=== PATIENT | female | born 1975 | race Caucasian/White ===

== ENCOUNTER 2016-09-11 19:18 | Emergency (ER) | payer OTHER ==
[~2016-09-11] VITALS: Ht 170.2 cm; Wt 53.6 kg
[~2016-09-11 19:18] MED LIST: LEVO150T5 PO
[2016-09-11 19:20] VITALS: BP 151/101; PULSE 87; RESP 16; O2SAT 99
--- NOTE | 2016-09-11 19:36 | ED.REPORT ---
HPI-Headache Date of Service Sep 11, 2016 ED Provider: Rajeev Crump DO Pt is a 41 year old female with a history of hyperthyroidism who presents to the ED complaining of a headache onset yesterday after a lumbar puncture. The pt reports that she was being tested for MS at [facility] due to weakness in her arms and hands, and she developed a headache 45 minutes following the lumbar puncture. She c/o associated pain in her arm, back, and legs. The pt reports that when she felt the pain, she went to the ER at [facility] and felt relief with medication. However, per pt the pain has gradually worsened and it is exacerbated with standing. Nursing Notes Stated Complaint: HEADACHE, NECK AND BACK PAIN AFTER LUMBAR PUNCTURE Chief Complaint: Headache Nursing Notes Reviewed: Yes Allergies: Coded Allergies: No Known Allergies (Verified , 09/11/16) Scheduled Levothyroxine (Levothyroxine) 150 Mcg Tablet 150 MCG PO DAILY General Time Seen by MD: 19:36 Chief Complaint Headache Hx Obtained From: Patient Arrived By: Walk-in Sudden in Onset?: No Onset Occurred: Yesterday Symptom Duration: Since onset Quality: Painful Severity: Current: Moderate Severity: Maximum: Moderate Recent Healthcare: Recent doctor visit Similar Sx Previous: No Past Medical History Past Medical History Notes: Last Admit for Baclofen OD requiring intubation 10/2015 Last ED visit 02/24/2016 acute situational disturbance and EtOH 0.410 Past Medical History Hx of Alcohol abuse Hypothyroidism Pulmonic stenosis- heart murmur Anxiety Syncopal episodes ho QTc prolongation, presumably from hypomagnesemia - 09/30/15 Pneumonia Left subclavian stenosis Hyperthyroidism Back injury Depression Past Surgical History Cardiac surgery at 13 years old for removal of a vascular ring Cervical procedure: right ovarian cystectomy Family History noncontributory Smoking History Never Smoker Social History Alcohol Use: In recovery Drug Use: Denies drug use Other Social History: , From out of town Occupation Ambulatory Status Independent Review of Systems Musculoskeletal: Reports: Back pain, Extremity pain Neurologic: Reports: Headache, Weakness Complete sys rev & neg: except as marked. Physical Exam Initial Vital Signs Vital Signs (First) Date Time Temp Pulse Resp B/P Pulse Ox O2 Delivery O2 Flow Rate FiO2 09/11/16 19:20 36 87 16 151/101 99 Room Air Initial VS: Reviewed ENT: Mucous membranes moist, Conjunctiva normal, No scleral icterus Respiratory: Breath sounds normal, Clear to auscultation, No respiratory distress Cardiovascular: Regular rate & rhythm, Heart sounds normal, Intact distal pulses Abdomen / GI: Soft, Non-tender Extremities: Vascular intact, Neuro intact Skin: Warm, Dry, No cyanosis Psychiatric: Mood/affect normal, Behavior normal, Normal thought content General/Constitutional: Awake, Alert, Cooperative, Not toxic appearing Head / Eyes: Atraumatic, Normocephalic, PERRL, EOMI Neck: Atraumatic, Full range of motion Neurologic: Oriented X3, Speech NL Back: Atraumatic, Full range of motion Lumbar puncture site in mid-lumbar site looks normal. Interpretation & Diagnostics Lab Results Interpretation Result Diagram: 09/11/16203909/11/162039 Test 09/11/16 20:40 White Blood Count 4.8th/mm3 (3.8-10.1) Red Blood Count 3.94mil/mm3 (3.90-5.20) Hemoglobin 12.4g/dL (12.0-15.6) Hematocrit 36.6% (35.0-46.0) Mean Corpuscular Volume 92.9fL (81-100) Mean Corpuscular Hemoglobin 31.5pg (27.0-35.0) Mean Corpuscular Hemoglobin Concent 33.9% (32.0-37.0) Red Cell Distribution Width 14.8% (12.3-15.4) Platelet Count 133bil/L (150-400) Neutrophils (%) (Auto) 67.5% (40-74) Lymphocytes (%) (Auto) 20.3% (14-46) Monocytes (%) (Auto) 10.3% (4-12) Eosinophils (%) (Auto) 1.5% (0-5) Basophils (%) (Auto) 0.2% (0-3) Sodium Level 137mEq/L (134-144) Potassium Level 3.4mEq/L (3.5-5.2) Chloride Level 97mEq/L (97-108) Carbon Dioxide Level 24mmol/L (18-29) Blood Urea Nitrogen 7mg/dL (6-20) Creatinine 0.40mg/dL (0.57-1.00) Estimat Glomerular Filtration Rate 255mL/min (>59) Glucose Level 125mg/dL (60-99) Calcium Level 10.1mg/dL (8.5-10.1) Total Bilirubin 0.5mg/dL (0.0-1.2) Aspartate Amino Transf (AST/SGOT) 99U/L (0-50) Alanine Aminotransferase (ALT/SGPT) 101U/L (0-32) Alkaline Phosphatase 59U/L (25-150) Total Protein 7.9g/dL (6.4-8.4) Albumin 4.5g/dL (3.4-5.0) Re-Eval/Medical Decision Med Decision/Clinical Course This sounds like a classic spinal headache. What is interesting is she just had the lumbar puncture yesterday. She is medicated with complete resolution of symptoms. I consulted with our anesthesiologist. He recommends against blood patching. He recommends symptomatic treatment and if not better in 48 hours and return for blood patching in the morning. Otherwise medicated she did great. She is very comfortable this. At discharge she is able get up and walk. No further final headache type symptoms. I will place her on a short course of Percocet fluids and caffeine. Of note she had elevated liver enzymes and I told her to keep the amount of acetaminophen she takes down under 4 g a day. She states she has not overdosed on Tylenol. She has been taking regular amounts. She is not sure why her liver enzymes are elevated but she will have this followed up closely. Source of Hx: Old records Re-Evaluation/Progress : Time of Eval: 20:09 Re-Evaluation/Progress Note: Pt rechecked. Informed pt of plan for discharge. Pt understands and agrees with plan for discharge. F/U instructions and RTER warnings given. All questions addressed. Consultation : Referral / Consult Name: Alvin Arce MD Consulted With: Anesthesia Call Returned at: 20:00 Teachers Assistant: Agrees with eval, Agrees with plan Note: Consult with Dr. Arce. He recommends symptomatic care and following up with [facility]. He recommends not pushing the issue. Counseled Regarding: Diagnosis, Need for follow-up, When/why to return to ED Discharge & Departure Impression: Primary Impression: Spinal headache Disposition: Home Discharge Condition All VS Reviewed: Yes Condition: Stable Patient Instructions: Lumbar Puncture (ED) Additional Instructions: Rest tonight. Do not drive tonight. Stay well hydrated and drink beverages with caffeine. Take 1-2 Percocet every 6 hours as needed. Do not drive or drink alcohol or consume acetaminophen while taking Percocet. If you have pain in the morning come back here or go to [facility] for blood patch. Return to the emergency department for any new or worsening symptoms. Referrals: Ban Bermudez MD (PCP) Scribe Attestation Portions of this note were transcribed by Mary Rosado. I, Dr. Crump personally performed the history, physical exam and medical decision-making; I reviewed and confirmed the accuracy of the information in the transcribed note. Signed by: Tato Galeas, 09/11/16 and 20:30. copies to: Ban Bermudez MD, Todd P DO Sep 11, 2016 19:36 Mary Baires Sep 11, 2016 19:58
[2016-09-11] MEDS ORDERED: Ondansetron 2 mg/mL 2 mL Inj IVPUSH PRN (19:50)
[2016-09-11] MEDS ORDERED: 0.9% Sodium Chloride 1,000 ML IV ONE (19:50)
[2016-09-11] MEDS ORDERED: HYDROmorphone 0.5 mg/0.5 mL iSecure Syringe IVPUSH PRN (19:50)
[2016-09-11 21:05] LABS: BASOPHILS % (AUTO) 0.2 % (0-3); EOSINOPHILS % (AUTO) 1.5 % (0-5); MONOCYTES % (AUTO) 10.3 % (4-12); Mean Corpuscular Hemoglobin 31.5 pg (27.0-35.0); Mean Corpuscular Volume 92.9 fL (81-100); NEUTROPHILS % (AUTO) 67.5 % (40-74); Platelet Count 133 bil/L (150-400)
[2016-09-11] MEDS ORDERED: _oxyCODONE/APAP 5-325 mg Tablet PO PRN (22:00)
[2016-09-11] MEDS ORDERED: oxyCODONE-Acetamin 5-325 mg Tablet PO ONE (22:00)
[2016-09-11 23:47] VITALS: BP 129/78; PULSE 63; RESP 18; O2SAT 99
== END 2016-09-11 23:50 | disposition home or self-care (01) ==
LOC: SED 19:18
DX: G97.1 Other reaction to spinal and lumbar puncture (principal); E05.90 Thyrotoxicosis, unspecified without thyrotoxic crisis or storm; F41.9 Anxiety disorder, unspecified
CPT/HCPCS: 36415; 80053; 85025; 96361; 96374; 96375; 99284; J1170; J2405; J7030

== ENCOUNTER 2016-11-24 16:10 | Emergency (ER) | payer OTHER ==
[~2016-11-24] VITALS: Ht 170.2 cm; Wt 54.5 kg
[2016-11-24 16:19] VITALS: BP 129/95; PULSE 104; RESP 16; O2SAT 98
--- NOTE | 2016-11-24 16:46 | ED.REPORT ---
HPI- Female Date of Service Nov 24, 2016 ED Provider: Doc,Ed MD History of Present Illness: 41-year-old female here with frequency, dysuria, urgency and scant production for 3 days. History of UTIs last was in May. No back pain or fever. Is sexually active for gonorrhea chlamydia and no vaginal discharge. Nursing Notes Stated Complaint: POSS UTI Chief Complaint: Female Abdominal Pain Nursing Notes Reviewed: Yes Allergies: Coded Allergies: No Known Allergies (Verified , 09/11/16) Scheduled Cephalexin (Keflex) 500 Mg Capsule 500 MG PO TID Levothyroxine (Levothyroxine) 150 Mcg Tablet 150 MCG PO DAILY General Time Seen by MD: 16:46 Chief Complaint Dysuria Hx Obtained From: Patient Arrived By: Walk-in Sudden in Onset?: No Onset Occurred: 3 days ago Symptom Duration: Intermittent Severity: Current: No pain currently Severity: Maximum: No pain Recent Healthcare: No recent doctor visit Similar Sx Previous: Yes Past Medical History Past Medical History Notes: Last Admit for Baclofen OD requiring intubation 10/2015 Last ED visit 02/24/2016 acute situational disturbance and EtOH 0.410 multiple sclerosis, UTI Past Medical History Hx of Alcohol abuse Hypothyroidism Pulmonic stenosis- heart murmur Anxiety Syncopal episodes ho QTc prolongation, presumably from hypomagnesemia - 09/30/15 Pneumonia Left subclavian stenosis Hyperthyroidism Back injury Depression Past Surgical History Cardiac surgery at 13 years old for removal of a vascular ring Cervical procedure: right ovarian cystectomy Family History noncontributory Smoking History Never Smoker Social History Alcohol Use: In recovery Drug Use: Denies drug use Other Social History: , From out of town Occupation Ambulatory Status Independent Review of Systems Constitutional: Denies: Chills, Fatigue, Fever GI: Denies: Abdominal pain, Nausea, Vomiting Female: Reports: Dysuria, Urinary frequency, Urinary urgency, Denies: Flank pain, Hematuria, Pelvic pain, Vaginal discharge Complete sys rev & neg: except as marked. Physical Exam Initial Vital Signs Vital Signs (First) Date Time Temp Pulse Resp B/P Pulse Ox O2 Delivery O2 Flow Rate FiO2 11/24/16 16:19 37 104 16 129/95 98 Room Air Initial VS: Reviewed, Vital signs normal General/Constitutional: Well-developed, Well-nourished Head / Eyes: Atraumatic, Normocephalic, PERRL Respiratory: Breath sounds normal, Clear to auscultation, No respiratory distress Cardiovascular: Regular rate & rhythm, Heart sounds normal, Intact distal pulses Abdomen / GI: Soft, Non-tender, No guarding, No rebound, No distention Back: No CVA tenderness Skin: Warm, Dry, No cyanosis Neurologic: Alert, Oriented, Nonfocal Psychiatric: Mood/affect normal, Behavior normal, Normal thought content Interpretation & Diagnostics Lab Results Interpretation Test 11/24/16 17:12 Urine Color Yellow (YELLOW) Urine Appearance Clear (CLEAR,HAZY) Urine pH 5.5 (5.0-8.0) Urine Specific [place] 1.025 (1.003-1.035) Urine Protein Tracemg/dL (NEG,TRACE) Urine Glucose (UA) Negativemg/dL (NEGATIVE) Urine Ketones 15mg/dL (NEGATIVE) Urine Occult Blood Trace (NEGATIVE) Urine Nitrite Negative (NEGATIVE) Urine Bilirubin Negative (NEGATIVE) Urine Urobilinogen Normalmg/dL (NORMAL) Urine Leukocyte Esterase Negative (NEGATIVE) Urine RBC 0-2/hpf (0-2) Urine WBC 0-5/hpf (0-5) Urine Epithelial Cells Few/hpf (NONE-MOD) Urine Crystals None seen (NONE SEEN) Urine Bacteria Few/hpf (NONE-FEW) Urine Hyaline Casts None/lpf (NONE) Urine Granular Casts None seen (NONE SEEN) Urine Waxy Casts None seen (NONE SEEN) Urine Red Blood Cell Casts None seen (NONE SEEN) Urine White Blood Cell Casts None seen (NONE SEEN) Urine Mucus None seen (None Seen) Urine Trichomonas None seen (NONE SEEN) Urine Yeast None (NONE SEEN) Urinalysis Comment None Urine Culture Reflexed Not indicated Re-Eval/Medical Decision Med Decision/Clinical Course UA did not show a UTI. Patient states it feels exactly like her past UTIs. We will treat with Keflex. She will follow up with her PCP for further care especially if her pain does not improve. Denies any vaginal symptoms and states to be highly unlikely for her to have STD. She declines a pelvic exam at this point. Discharge & Departure Shift Change Sign-Out Procedures: Results discussed Response to Therapy: Improved Impression: Primary Impression: Dysuria Disposition: Home Discharge Condition All VS Reviewed: Yes Condition: Stable Patient Instructions: Dysuria (ED) Additional Instructions: Take antibiotics as prescribed. Pyridium available [id number] as needed to take up to 3 days. Drink lots of fluids. Follow up for pelvic exam and further care if symptoms are not improving with antibiotics. Urine was not cultured today. Referrals: [facility] (PCP) EDSupervising Provider for APC: Calvin Perez MD, Linnea K ARNP Nov 24, 2016 16:46
[2016-11-24 17:32] LABS: APPEARANCE,URINE CLEAR (CLEAR,HAZY); COLOR,URINE YELLOW (YELLOW); OCCULT BLOOD,URINE TRACE (NEGATIVE); PH,URINE 5.5 (5.0-8.0); UROBILINOGEN,URINE NORMAL (NORMAL)
[2016-11-24] MEDS ORDERED: CEPH-512 PO (17:49)
== END 2016-11-24 17:50 | disposition home or self-care (01) ==
LOC: SED 16:10
DX: R30.0 Dysuria (principal); R35.0 Frequency of micturition; G35 Multiple sclerosis; F10.21 Alcohol dependence, in remission; E03.9 Hypothyroidism, unspecified; Z87.440 Personal history of urinary (tract) infections

== ENCOUNTER 2016-12-16 20:05 | Observation (INO) | payer OTHER ==
[~2016-12-16] VITALS: Ht 170.2 cm; Wt 56.8 kg
[~2016-12-16 20:05] MED LIST changes: +CEPH-512 PO
[2016-12-16 20:34] VITALS: BP 121/79; PULSE 102; RESP 18; O2SAT 95
--- NOTE | 2016-12-16 23:15 | ED.REPORT ---
HPI-General Illness Date of Service Dec 16, 2016 ED Provider: Iker Peterson MD The pt is a 41 year old homeless female with a hx of MS, DM, SI, and syncopal episodes presenting to the ED complaining of her "left foot dropping out" and she cannot walk. She claims that she is not able to take her Glatopa because she is unable to refrigerate it. She claims that she has the pills in her friend 's fridge in [place]. She says that her clinic is [facility], but they will not hold her medications for her. Her provider is in [place]. She is able to walk with a cane. She was last treated with IV steroids in October 2016. Nursing Notes Stated Complaint: BILATERAL LEG WEAKNESS Chief Complaint: Extremity Trauma Nursing Notes Reviewed: Yes Allergies: Coded Allergies: erythromycin base (Verified Allergy, Intermediate, Eye swell shut, 12/17/16 ) Ointment formula Scheduled Amoxicillin/Clav K 500-125 mg (Augmentin 500-125 mg) 1 Each Tablet 1 TABLET PO BID Cephalexin (Keflex) 500 Mg Capsule 500 MG PO TID Levothyroxine (Levothyroxine) 150 Mcg Tablet 150 MCG PO DAILY Miscellaneous Medications Cranberry Conc/Ascorbic Acid (Cranberry 6,000 mg Softgel) 1 Each Capsule 1 EACH PO Magnesium Amino Acid Chelate (Magnesium) 100 Mg Tablet 100 MG PO Melatonin (Melatonin) 1 Mg Tablet 1 MG PO Potassium Gluconate (Potassium) 99 Mg Tablet 99 MG PO Vit W-Ca,Fe,FA(<1 mg) ( Formula) 1 Each Tablet Unknown Dose PO Pyridoxine HCl (Vitamin B6) (B-6) 200 Mg Tablet.er 200 MG PO General Time Seen by MD: 23:10 Chief Complaint Other (not being able to move her left leg) Hx Obtained From: Patient Arrived By: Walk-in Sudden in Onset?: No Location: : Leg left Recent Healthcare: No recent hospitalization, Recent doctor visit Similar Sx Previous: Yes Past Medical History Past Medical History Notes: Last Admit for Baclofen OD requiring intubation 10/2015 Last ED visit 02/24/2016 acute situational disturbance and EtOH 0.410 multiple sclerosis, UTI Past Medical History DM MS Hx of Alcohol abuse Hypothyroidism Pulmonic stenosis- heart murmur Anxiety Syncopal episodes ho QTc prolongation, presumably from hypomagnesemia - 09/30/15 Pneumonia Left subclavian stenosis Hyperthyroidism Back injury Depression Past Surgical History Cardiac surgery at 13 years old for removal of a vascular ring Cervical procedure: right ovarian cystectomy Family History noncontributory Smoking History Never Smoker Social History Alcohol Use: In recovery Drug Use: Denies drug use Other Social History: , From out of town Occupation Ambulatory Status Independent Review of Systems Full Review of Systems Constitutional: Denies: Chills, Fever Respiratory: Denies: Shortness of breath, Wheezing GI: Denies: Nausea, Vomiting Neurologic: Reports: Weakness (left leg) Complete sys rev & neg: except as marked. Physical Exam Vital Signs Vital Signs Date Time Temp Pulse Resp B/P Pulse Ox O2 Delivery O2 Flow Rate FiO2 12/17/16 00:16 90 14 120/81 98 Room Air 12/16/16 20:34 36.2 102 18 121/79 95 Room Air Initial VS: Reviewed, Vital signs normal General/Constitutional: Well-developed, Well-nourished Head / Eyes: Atraumatic, Normocephalic ENT: Mucous membranes moist, Conjunctiva normal Neck: Supple, Full range of motion Respiratory: Breath sounds normal, Clear to auscultation, No respiratory distress Cardiovascular: Regular rate & rhythm, Heart sounds normal Abdomen / GI: Soft, Non-tender Back: No CVA tenderness Skin: Warm, Dry Neurologic: Alert, Oriented Psychiatric: Mood/affect normal, Behavior normal Lower Extremity / Pelvis / MS: Atraumatic Muscle atrophy 1+ strength Neurologic: Oriented X3, Speech NL Diffuse weakness left lower extremity Interpretation & Diagnostics Lab Results Interpretation Result Diagram: 12/17/16 0000 12/17/16 0000 Test 12/17/16 00:00 White Blood Count 5.8th/mm3 (3.8-10.1) Red Blood Count 3.50mil/mm3 (3.90-5.20) Hemoglobin 11.4g/dL (12.0-15.6) Hematocrit 33.4% (35.0-46.0) Mean Corpuscular Volume 95.4fL (81-100) Mean Corpuscular Hemoglobin 32.6pg (27.0-35.0) Mean Corpuscular Hemoglobin Concent 34.1% (32.0-37.0) Red Cell Distribution Width 15.4% (12.3-15.4) Platelet Count 400bil/L (150-400) Neutrophils (%) (Auto) 30.0% (40-74) Lymphocytes (%) (Auto) 57.6% (14-46) Monocytes (%) (Auto) 10.7% (4-12) Eosinophils (%) (Auto) 0.9% (0-5) Basophils (%) (Auto) 0.5% (0-3) Hold Purple Top Tube Received (Received) Hold Blue Top Tube Received (Received) Sodium Level 143mEq/L (134-144) Potassium Level 4.0mEq/L (3.5-5.2) Chloride Level 103mEq/L (97-108) Carbon Dioxide Level 25mmol/L (18-29) Blood Urea Nitrogen 11mg/dL (6-20) Creatinine 0.44mg/dL (0.57-1.00) Estimat Glomerular Filtration Rate 228mL/min (>59) Glucose Level 96mg/dL (60-99) Calcium Level 9.0mg/dL (8.5-10.1) Magnesium Level 2.3mg/dL (1.6-2.6) Total Bilirubin 0.2mg/dL (0.0-1.2) Aspartate Amino Transf (AST/SGOT) 27U/L (0-50) Alanine Aminotransferase (ALT/SGPT) 15U/L (0-32) Alkaline Phosphatase 43U/L (25-150) Total Protein 7.5g/dL (6.4-8.4) Albumin 4.3g/dL (3.4-5.0) Hold Red Top Tube Received (Received) Hold [place] Top Tube Received (Received) Lab values outside NL range: no clinical significance. Re-Eval/Medical Decision Med Decision/Clinical Course 41-year-old female with a history of MS presents with worsening symptoms in her left lower extremity weakness and inability control the muscles. She has been trouble managing her MS medication because of her homelessness, so she has not been taking it. She received a 3 day IV infusion of Solu-Medrol in early October. Her case was discussed with the on-call neurologist for Dr. Bauer who agreed with the plan to place her on another three-day infusion of Solu-Medrol. She will need to try and optimize some sort of cold storage option for her other medication so that she can take it despite her homelessness. Time of Eval: 03:00 Re-Evaluation/Progress Note: Discussed plan to admit. All questions addressed at this time. Consultation #1: Consulted With: Neurology Call Returned at: 00:18 Rn Birthing: Agrees with eval, Agrees with plan Note: On-call neurologist for Dr. Bauer. Discussed plan for admission. Consultation #2: Referral / Consult Name: GorannikkospencerLaurycourt Calvillo DO Consulted With: Hospitalist Call Returned at: 02:58 Rn Birthing: Will see patient, Agrees with plan, Accepts admit Note: Discussed patient's case. Accepts admit. Counseled Regarding: Diagnosis, Lab results, Need for admission Discharge & Departure Primary Impression: Multiple sclerosis exacerbation Referrals: [facility] (PCP) Tato Attestation Portions of this note were transcribed by Lui Baxter. I, Dr. Peterson personally performed the history, physical exam and medical decision-making; I reviewed and confirmed the accuracy of the information in the transcribed note. Signed by: Tato Elena, 12/16/2016 Iker Peterson MD Dec 16, 2016 23:15 Dec 16, 2016 23:33
[2016-12-16] MEDS ORDERED: Methylpred Sodium Succ Inj 1,000 MG in Dextrose 5% 250 ML IV ONE (23:45)
[2016-12-17 00:16] VITALS: BP 120/81; PULSE 90; RESP 14; O2SAT 98
[2016-12-17 00:57] LABS: BASOPHILS % (AUTO) 0.5 % (0-3); EOSINOPHILS % (AUTO) 0.9 % (0-5); MONOCYTES % (AUTO) 10.7 % (4-12); Mean Corpuscular Hemoglobin 32.6 pg (27.0-35.0); Mean Corpuscular Volume 95.4 fL (81-100); Platelet Count 400 bil/L (150-400)
[2016-12-17 01:12] LABS: Magnesium 2.3 mg/dL (1.6-2.6)
[2016-12-17] MEDS ORDERED: Alum-Mag Hydrox-Simeth 30 mL Suspension PO PRN ×2 (04:25→07:50)
[2016-12-17] MEDS ORDERED: Ondansetron 2 mg/mL 2 mL Inj IVPUSH PRN ×2 (04:25→07:50)
[2016-12-17] MEDS ORDERED: AMOX-363 PO (04:35)
[2016-12-17] MEDS ORDERED: CRAN1CAP2 PO (04:42)
[2016-12-17] MEDS ORDERED: MAGN100T5 PO (04:42)
[2016-12-17] MEDS ORDERED: PREN-12 PO (04:42)
[2016-12-17] MEDS ORDERED: PYRI200T7 PO (04:42)
[2016-12-17] MEDS ORDERED: POTA99TA21 PO (04:42)
[2016-12-17] MEDS ORDERED: MELA1TAB9 PO (04:42)
[2016-12-17 04:44] VITALS: BP 110/75; PULSE 99; RESP 18; O2SAT 94
--- NOTE | 2016-12-17 05:35 | NUR ---
Admit Pt arrived onto unit from ED at approx 0435. Pt oriented to room, call light, bathroom, etc. VSS, received report later by Delmi Gan RN. Pt able to ambulate with steady gait using cane which is her baseline. No pain, SOB, n/v. Awaiting orders from physician. Pt was concerned about her detoxing friend that was waiting in her car in the parking lot. Security escorted him up to her room.
[2016-12-17] MEDS ORDERED: Polyethylene Glycol (PEG) 17 Gm Powder PO PRN (07:50)
[2016-12-17 08:05] VITALS: BP 111/69; PULSE 90; RESP 18; O2SAT 97
[2016-12-17] MEDS ORDERED: MethylprednisoLONE Sodium Succinate 62.5 mg/mL 2 mL Inj IVPUSH SCH (08:30)
[2016-12-17] MEDS: Multivit-Miner-Folic Acid-Iron Tablet PO SCH (08:59)
[2016-12-17] MEDS: Amoxicillin-Clav 500-125 mg Tablet PO SCH ×2 (08:59→19:52)
[2016-12-17] MEDS ORDERED: MELATONIN PO (10:46)
--- NOTE | 2016-12-17 10:56 | NUR ---
Mobility 0800 called to pt room to assist to BR. Pt physically move left leg to edge of bed then was able to stand and amb with cane SBA. 1000 seen getting up out of bed indep to sink to wash face and teeth. was not seen having to physically move left let, got up indep.
--- NOTE | 2016-12-17 11:42 | PCM.HPMED ---
Subjective Date of Service Dec 17, 2016 Primary Provider: Admitting Physician: Laury Solano DO [facility] Attending Physician: Jonas Tolentino MD Chief Complaint: Left lower extremity weakness History of Present Illness: Patient is a 41 year old female with pmh of MS (last flare end of ), frequent UTIs, Hypothyroidism who is getting admitted for the left sided weakness. She was in here with her friend last night in ER as he was supposed to be admitted for detox, he was given meds and was being discharged when she felt loss of motor response in her left foot. She follows Dr. Rajeev Bauer ( neurologist) in [place] for MS. She added that she recently had right parotid infection for which was taking augmentin, and left eye bacterial conjunctivitis, for which she is taking polymyxin B drops. Today morning, she denies any complaints except not being to move her left foot still. She added that she was started on Glatopa by her neurologist about a month ago, however she has only taken 7 days of meds so far. The reason being, the med needs to be refrigerated and she lives in a car, and her medication is sitting in her friend 's fridge. Allergies Coded Allergies: erythromycin base (Verified Allergy, Intermediate, Eye swell shut, 12/17/16 ) Ointment formula PMH DM MS Hx of Alcohol abuse Hypothyroidism Pulmonic stenosis- heart murmur Anxiety Syncopal episodes ho QTc prolongation, presumably from hypomagnesemia - 09/30/15 Pneumonia Left subclavian stenosis Hyperthyroidism Back injury Depression Surgical History Cardiac surgery at 13 years old for removal of a vascular ring Cervical procedure: right ovarian cystectomy Family History Non contributory Social History Hx Alcohol Use: Yes (OCCASIONAL) Hx Substance Use: No Hx Tobacco Use: No Smoking Status: Never Smoker Exam Vital Signs Vital Sign - Last Date Time Temp Pulse Resp B/P Pulse Ox O2 Delivery O2 Flow Rate FiO2 12/17/16 08:05 36.8 90 18 111/69 97 Room Air Exam General/Constitutional: Well-developed, Well-nourished Head / Eyes: Atraumatic, Normocephalic ENT: Mucous membranes moist, Conjunctiva normal Neck: Supple, Full range of motion Respiratory: Breath sounds normal, Clear to auscultation, No respiratory distress Cardiovascular: Regular rate & rhythm, Heart sounds normal Abdomen / GI: Soft, Non-tender Back: No CVA tenderness Skin: Warm, Dry Neurologic: Alert, Oriented Psychiatric: Mood/affect normal, Behavior normal Lower Extremity / Pelvis / MS: Atraumati Muscle atrophy 1+ strength Neurologic: Oriented X3, Speech NL, Babinski negative Diffuse weakness left lower extremity Lab and Diagnostics Result Diagram: 12/17/16 0000 12/17/16 0000 X-Rays, CTs and MRIs MRI IMPRESSION: 1. No acute intracranial hemorrhage or ischemia. 2. No parenchymal mass. 3. Extensive white matter changes within the supratentorial brain has a pattern that is most suggestive of demyelinating process such as multiple sclerosis, particularly given the patient's age. Chronic small vessel ischemic changes are felt to be unlikely given the patient's age. There is questionable involvement of the corpus callosum. No definite abnormal signal is appreciated involving the posterior fossa, brainstem, midbrain. No enhancing lesions. Assessment & Plan Patient is a 41 year old female with pmh of MS (last flare end of ), frequent UTIs, Hypothyroidism who is getting admitted for the left sided weakness. > Left sided weakness - likely 2/2 MS flare - will do high dose steroids 1000mg Qdaily till symptomatic improvement - will repeat MRI to rule out any other acute causes - will start home dose of glatopa once confirmed - Neurology consult, discussed with Dr. Sanchez - case liner/director social to look into options for refrigeration options outpatient > h/o UTIs - urinalysis to rule out the etiology for flare from UTI >recent h/o partoditis - markedly improved, no fever or wbc count observed - finish the course of oral abx >recent h/o Left eye bacterial conjunctivitis - continue polymyxin B to complete the course > Hypothyroidism - continue home levothyroxine > H/o alcohol withdrawals - continue vitamin supplements Dispo: Patient likely to stay > 2 days due to MS flare and its complications. Pain Evaluation: Adequate Pain Control Resuscitation Status: CPR: Attempt Resuscitation Time spent 35 mins Jonas Tolentino MD Dec 17, 2016 11:38
[2016-12-17 12:21] LABS: COLOR,URINE STRAW (YELLOW)
[2016-12-17 12:22] LABS: APPEARANCE,URINE CLEAR (CLEAR,HAZY); OCCULT BLOOD,URINE LARGE (NEGATIVE); PH,URINE 5.5 (5.0-8.0); UROBILINOGEN,URINE NORMAL (NORMAL)
[2016-12-17] MEDS: Polymyxin B-Trimethoprim 10 mL Ophthalmic Solution LEFT_EYE SCH ×4 (13:50→21:24)
[2016-12-17 16:30] VITALS: BP 128/76; PULSE 101; RESP 18; O2SAT 97
[2016-12-17] MEDS ORDERED: Methylpred Sodium Succ Inj 1,000 MG in Dextrose 5% 250 ML IV SCH (17:00)
--- NOTE | 2016-12-17 17:17 | NUR ---
Social Work Note: Initial Assessment Data& Assessment: EMR reviewed. CLAY MILLER met with pt at bedside to discuss discharge planning, CLAY MILLER role explained and discharge planning checklist provided. Sarah Mitchell is a 41 year old female admitted under observation status on 12/17/2016 for acute exacerbation of MS. Pt has [employer] coverage and sees Yoselin Doe with [facility] for primary care. Pt lives in her car with her boyfriend and is independent with all ADL's. Pt ambulates with a cane at baseline. Pt is not a and does not have LTC insurance. CLAY MILLER and pt reflected on the fact that if she ever began to feel unsafe and unable to complete her ADL's due to her MS, she could be evaluated by the [facility] for LTC through [facility]. Pt is familiar with this program. Pt primary concern is her medications for her MS which need to be refrigerated. Pt currently storing them in her friends fridge. CLAY MILLER confirmed with [facility] in [place] that the pt would be able to store her medications in their fridge if she went there for their services and meals. Pt also shared interest in dental care. Pt explained she was traveling to in [place] for Free dental work but transportation to [place] is difficult to her. CLAY MILLER inquired with [facility] dental program who explained that they actually partner with dental program and come to our community on scheduled dates to provide free dental care to community members. However, it is uncertain at this time if the funding will be available for this program this fall, but they hopefully will know more information in a couple of weeks. CLAY MILLER provided pt with their phone number and encouraged her to call in a couple of weeks. Pt denies any other needs at this time. CLAY MILLER provided community resource information. No other MD orders identified at this time. CLAY MILLER to continue to follow if any other pt needs or MD orders arise. Plan: Anticipated discharge back into the community with her significant other via POV when medically ready. Community Resource information provided. CLAY MILLER to continue to follow if any other pt needs or MD orders arise. JEFF Thapa Addendum: 12/17/16 at 1724 by MARC LUCIO Amended: Links added.
[2016-12-17] MEDS: Methylpred Sodium Succ Inj 1,000 MG in Dextrose 5% 250 ML IV SCH (18:27)
--- NOTE | 2016-12-17 18:40 | DRSVH ---
PROCEDURE: MRI MULTIPLE SCLEROSIS BRAIN WITH AND WITHOUT CONTRAST ([id number]) INDICATIONS: MULTIPLE SCLEROSIS TECHNIQUE: Noncontrast sagittal and axial FLAIR, axial and coronal T2 fast spin echo, axial VIBE, axial gradient echo, axial diffusion and ADC through the brain. After the administration of contrast, axial and co ankit VIBE with fat saturation through the brain. COMPARISON: [facility], MR, MR BRAIN W&WO CON, 04/05/2016, 18:54. FINDINGS: Image quality: Excellent. CSF spaces: Ventricles are normal in size and shape. Basal cisterns are patent. No extra-axial flu id collections. Brain: No intracranial bleeds or mass effects. Bernardo-white matter interface appears intact. There mu ltiple bilateral deep and periventricular white matter lesions similar in extent to the comparison MR I dated 04/05/16. No new white matter lesions visualized. No abnormal intracranial enhancement. Diffu waqar weighted images show no acute ischemic insults. Brainstem appears normal. Normal intravascular flow voids are present. Skull and face: Calvarial marrow signal is normal. Orbits appear normal. Sinuses: Sinuses and mastoids are clear. IMPRESSION: 1. Unchanged deep and periventricular white matter lesions likely associated with multiple sclerosis. 2. No acute intracranial findings. 3. No findings to suggest progression of disease when compared with the study dated 04/05/16. 4. No abnormal enhancement to suggest active demyelination. Dictated by: Darby Munoz M.D. on 12/17/2016 at 18:34 Approved by: Darby Munoz M.D. on 12/17/2016 at 18:38
[2016-12-17 19:53] VITALS: BP 144/91; PULSE 93; RESP 18; O2SAT 97
[2016-12-18] MEDS: Polymyxin B-Trimethoprim 10 mL Ophthalmic Solution LEFT_EYE SCH ×9 (00:01→23:36)
[2016-12-18 00:27] VITALS: BP 121/79; PULSE 77; RESP 17; O2SAT 96
[2016-12-18 05:25] VITALS: BP 122/78; PULSE 76; RESP 16
--- NOTE | 2016-12-18 05:34 | NUR ---
pain: Patient c/o muscle cramps in lower left leg, provided warm packs with good comfort, noted fluid intake decreased, encouraged to increase fluids as tolerated. Instructed on benefits of fluid R/T pain and discomfort. Continues on steroids for MS exacerbation and Augmentin for parotid infection. left eye healing well with no observed drainage this shift.
[2016-12-18 07:45] VITALS: BP 116/75; PULSE 67; RESP 16; O2SAT 98
[2016-12-18] MEDS: Multivit-Miner-Folic Acid-Iron Tablet PO SCH (08:44)
[2016-12-18] MEDS: Amoxicillin-Clav 500-125 mg Tablet PO SCH ×2 (08:44→20:28)
--- NOTE | 2016-12-18 10:24 | PCM.PNMED ---
Subjective Date of Service Dec 18, 2016 Subjective c/o muscle cramps in lower left leg Exam Vital Signs Vital Sign - Last Date Time Temp Pulse Resp B/P Pulse Ox O2 Delivery O2 Flow Rate FiO2 12/18/16 07:45 36.8 67 16 116/75 98 Room Air Intake and Output 12/17/16 12/17/16 12/18/16 Cumulative From/Thru 15:00 23:00 07:00 12/16/16 20:34 - 12/18/16 06:31 Intake Total 1020 ml 480 ml 730 ml 2230 ml Output Total 250 ml 150 ml 1650 ml 2050 ml Balance 770 ml 330 ml -920 ml 180 ml Intake Oral 1020 ml 480 ml 720 ml 2220 ml Tube Irrigant 10 ml 10 ml Output Urine Total 250 ml 150 ml 1650 ml 2050 ml # Bowel Movements 0 0 Exam General/Constitutional: Well-developed, Well-nourished Head / Eyes: Atraumatic, Normocephalic L Eye- swollen, no drainage. ENT: Mucous membranes moist, Conjunctiva normal Neck: Supple, Full range of motion Respiratory: Breath sounds normal, Clear to auscultation, No respiratory distress Cardiovascular: Regular rate & rhythm, Heart sounds normal Abdomen / GI: Soft, Non-tender Back: No CVA tenderness Skin: Warm, Dry Neurologic: Alert, Oriented Psychiatric: Mood/affect normal, Behavior normal Lower Extremity / Pelvis / MS: Atraumatic Muscle atrophy 1+ strength Neurologic: Oriented X3, Speech NL, Babinski negative Diffuse weakness left lower extremity IVs and Medications Medications Reviewed: Medications were reviewed in detail Lab and Diagnostics Result Diagram: 12/17/16 0000 12/17/16 0000 X-Rays, CTs and MRIs 12/17/16 MRI MULTIPLE SCLEROSIS BRAIN WITH AND WITHOUT CONTRAST ([id number]) IMPRESSION: 1. There multiple bilateral deep and periventricular white matter lesions similar in extent to the comparison MRI dated 04/05/16. No new white matter lesions visualized 2. No acute intracranial findings. 3. No findings to suggest progression of disease when compared with the study dated 04/05/16. 4. No abnormal enhancement to suggest active demyelination. MRI IMPRESSION: 1. No acute intracranial hemorrhage or ischemia. 2. No parenchymal mass. 3. Extensive white matter changes within the supratentorial brain has a pattern that is most suggestive of demyelinating process such as multiple sclerosis, particularly given the patient's age. Chronic small vessel ischemic changes are felt to be unlikely given the patient's age. There is questionable involvement of the corpus callosum. No definite abnormal signal is appreciated involving the posterior fossa, brainstem, midbrain. No enhancing lesions. Assessment & Plan Patient is a 41 year old female with pmh of MS (last flare end of ), frequent UTIs, Hypothyroidism who is getting admitted for the left sided weakness, on steroids for MS exacerbation and Augmentin for parotid infection > MS Exacerbation with Left sided weakness, poa, active. despite being on glatopa - Started high dose IV steroids 1000mg Qdaily started 12/17. - MRI-multiple bilateral deep and periventricular white matter lesions similar in extent to the comparison MRI dated 04/05/16. No new white matter lesions visualized. . - Neurology consult, discussed with Dr. Sanchez. - Will arrange follow up with outpatient Neurologist, Dr. Rajeev Bauer. Consider different agent as outpatient. tecfidera - PT ordered, pt uses cane now. >recent h/o partoditis - markedly improved, no fever or wbc count observed - finish the course of oral abx Augmentin. > h/o UTIs, stable. - urinalysis ruled out the etiology for flare from UTI >recent h/o Left eye bacterial conjunctivitis - continue polymyxin B to complete the course > Hypothyroidism - continue home levothyroxine > H/o alcohol withdrawals - continue vitamin supplements - Monitor for WD. Dispo: Will attempt to change to inpatient status. Patient likely to stay > 2 days due to MS flare and its complications. Resuscitation Status: CPR: Attempt Resuscitation Joey Severino MD Dec 18, 2016 10:24
[2016-12-18 16:45] VITALS: BP 135/79; PULSE 86; RESP 18; O2SAT 95
[2016-12-18] MEDS: Methylpred Sodium Succ Inj 1,000 MG in Dextrose 5% 250 ML IV SCH (17:07)
--- NOTE | 2016-12-18 19:38 | NUR ---
Flu shot Pt requesting flu shot during this hospitalization. MD stated not while receiving high dose steroids, to follow up with PCP after discharge. Pt notified.
[2016-12-18 20:30] VITALS: BP 127/78; PULSE 88; RESP 16; O2SAT 96
[2016-12-19 01:00] VITALS: BP 132/80; PULSE 75; RESP 16; O2SAT 98
[2016-12-19] MEDS: Polymyxin B-Trimethoprim 10 mL Ophthalmic Solution LEFT_EYE SCH ×8 (02:37→23:34)
--- NOTE | 2016-12-19 05:27 | NUR ---
Unable to scan medications Computer scanners were down so unable to scam patient bracelet and medication barcode used date and name to identify patient. Pt. continues to have weakness but ambulates well to restroom with just standby assist. Pt. is on RA, SL Lt AC flushing well. VSS and she is in good spirits. WCTM
[2016-12-19 05:55] VITALS: BP 132/83; PULSE 79; RESP 16; O2SAT 97
[2016-12-19] MEDS: Amoxicillin-Clav 500-125 mg Tablet PO SCH ×2 (08:32→20:39)
[2016-12-19] MEDS: Multivit-Miner-Folic Acid-Iron Tablet PO SCH (08:32)
[2016-12-19 09:05] VITALS: BP 128/81; PULSE 72; RESP 16; O2SAT 96
--- NOTE | 2016-12-19 11:04 | PCM.PNMED ---
Subjective Date of Service Dec 19, 2016 Subjective No overnight events. Exam Vital Signs Vital Sign - Last Date Time Temp Pulse Resp B/P Pulse Ox O2 Delivery O2 Flow Rate FiO2 12/19/16 09:05 36.7 72 16 128/81 96 Room Air Intake and Output 12/18/16 12/18/16 12/19/16 Cumulative From/Thru 15:00 23:00 07:00 12/16/16 20:34 - 12/18/16 22:38 Intake Total 2316 ml 4546 ml Output Total 475 ml 2525 ml Balance 1841 ml 2021 ml Intake Oral 2050 ml 4270 ml IV Total 266 ml 266 ml Tube Irrigant 10 ml Output Urine Total 475 ml 2525 ml # Voids 4 4 # Bowel Movements 0 0 Exam General/Constitutional: Well-developed, Well-nourished Head / Eyes: Atraumatic, Normocephalic L Eye- swollen, no drainage. ENT: Mucous membranes moist, Conjunctiva normal Neck: Supple, Full range of motion Respiratory: Breath sounds normal, Clear to auscultation, No respiratory distress Cardiovascular: Regular rate & rhythm, Heart sounds normal Abdomen / GI: Soft, Non-tender Back: No CVA tenderness Skin: Warm, Dry Neurologic: Alert, Oriented Psychiatric: Mood/affect normal, Behavior normal Lower Extremity / Pelvis / MS: Atraumatic Muscle atrophy 1+ strength Neurologic: Oriented X3, Speech NL, Babinski negative Diffuse weakness left lower extremity IVs and Medications Medications Reviewed: Medications were reviewed in detail Lab and Diagnostics Result Diagram: 12/17/16 0000 12/17/16 0000 X-Rays, CTs and MRIs 12/17/16 MRI MULTIPLE SCLEROSIS BRAIN WITH AND WITHOUT CONTRAST ([id number]) IMPRESSION: 1. There multiple bilateral deep and periventricular white matter lesions similar in extent to the comparison MRI dated 04/05/16. No new white matter lesions visualized 2. No acute intracranial findings. 3. No findings to suggest progression of disease when compared with the study dated 04/05/16. 4. No abnormal enhancement to suggest active demyelination. MRI IMPRESSION: 1. No acute intracranial hemorrhage or ischemia. 2. No parenchymal mass. 3. Extensive white matter changes within the supratentorial brain has a pattern that is most suggestive of demyelinating process such as multiple sclerosis, particularly given the patient's age. Chronic small vessel ischemic changes are felt to be unlikely given the patient's age. There is questionable involvement of the corpus callosum. No definite abnormal signal is appreciated involving the posterior fossa, brainstem, midbrain. No enhancing lesions. Assessment & Plan Patient is a 41 year old female with pmh of MS (last flare end of ), frequent UTIs, Hypothyroidism who is getting admitted for the left sided weakness, on steroids for MS exacerbation and Augmentin for parotid infection > MS Exacerbation with Left sided weakness, poa, active. despite being on glatopa - Started high dose IV steroids 1000mg Qdaily started 12/17. - MRI-multiple bilateral deep and periventricular white matter lesions similar in extent to the comparison MRI dated 04/05/16. No new white matter lesions visualized. . - Will arrange follow up with outpatient Neurologist next week, Dr. Rajeev Bauer. Consider different agent as outpatient such as tecfidera. Keep follow up appointment December 25, 2pm. Office will call with sooner follow up if available. - Neurology, Dr. Snachez, consulted. Plan discussed as above. >recent h/o partoditis - markedly improved, no fever or wbc count observed - finish the course of oral abx Augmentin for 10 days to finish Dec.22 > h/o UTIs, stable. - urinalysis ruled out the etiology for flare from UTI >recent h/o Left eye bacterial conjunctivitis - continue polymyxin B to complete the course on 12/20. > Hypothyroidism - continue home levothyroxine > H/o alcohol withdrawals - continue vitamin supplements - No evidence Dispo: Patient likely to stay > 2 days due to MS flare and its complications. Resuscitation Status: CPR: Attempt Resuscitation Joey Severino MD Dec 19, 2016 11:04 Joey Severino MD Dec 19, 2016 11:04
[2016-12-19 13:00] VITALS: BP 140/84; PULSE 94; RESP 16; O2SAT 96
[2016-12-19 16:30] VITALS: BP 137/86; PULSE 81; RESP 16; O2SAT 96
--- NOTE | 2016-12-19 17:30 | NUR ---
Shift Note Patient ambulated in room with cane without difficulty today. IV Solumedrol given this afternoon. VSS. Remains observation status, but UR RN aware and this is appropriate at this time. Patient should d/c after MS medications are prescribed and IV Solumedrol course is finished. Of Note: Wireless difficulties in unit and no medication bar code scanned for this patient today.
[2016-12-19] MEDS: Methylpred Sodium Succ Inj 1,000 MG in Dextrose 5% 250 ML IV SCH (17:53)
[2016-12-19 20:30] VITALS: BP 128/80; PULSE 66; RESP 16; O2SAT 97
[2016-12-20 01:00] VITALS: BP 139/79; PULSE 75; RESP 16; O2SAT 96
[2016-12-20] MEDS: Polymyxin B-Trimethoprim 10 mL Ophthalmic Solution LEFT_EYE SCH ×3 (02:30→07:50)
[2016-12-20 05:32] VITALS: BP 139/79; PULSE 71; RESP 16; O2SAT 96
--- NOTE | 2016-12-20 05:45 | NUR ---
Continued Improvement Patient is doing better everyday. Able to ambulate easier and no reports of pain. VSS and she is in good spirits. No adverse reactions to medication treatments during this shift. Eyes are looking better with eye drop treatment. [facility]
[2016-12-20] MEDS: Multivit-Miner-Folic Acid-Iron Tablet PO SCH (07:50)
[2016-12-20 08:44] VITALS: BP 132/82; PULSE 73; RESP 16; O2SAT 97
--- NOTE | 2016-12-20 10:58 | PCM.PNMED ---
Subjective Date of Service Dec 20, 2016 Subjective Pt c/o of cramps both legs overnight. Exam Vital Signs Vital Sign - Last Date Time Temp Pulse Resp B/P Pulse Ox O2 Delivery O2 Flow Rate FiO2 12/20/16 08:44 36.8 73 16 132/82 97 Room Air Intake and Output 12/19/16 12/19/16 12/20/16 Cumulative From/Thru 15:00 23:00 07:00 12/16/16 20:34 - 12/20/16 06:18 Intake Total 1000 ml 950 ml 0 ml 6496 ml Output Total 1150 ml 500 ml 500 ml 4675 ml Balance -150 ml 450 ml -500 ml 1821 ml Intake Oral 1000 ml 700 ml 5970 ml IV Total 250 ml 0 ml 516 ml Tube Irrigant 10 ml Output Urine Total 1150 ml 500 ml 500 ml 4675 ml # Voids 1 5 # Bowel Movements 0 Exam General/Constitutional: Well-developed, Well-nourished Head / Eyes: Atraumatic, Normocephalic L Eye- swollen, no drainage. ENT: Mucous membranes moist, Conjunctiva normal Neck: Supple, Full range of motion Respiratory: Breath sounds normal, Clear to auscultation, No respiratory distress Cardiovascular: Regular rate & rhythm, Heart sounds normal Abdomen / GI: Soft, Non-tender Back: No CVA tenderness Skin: Warm, Dry Neurologic: Alert, Oriented Psychiatric: Mood/affect normal, Behavior normal Lower Extremity / Pelvis / MS: Atraumatic Muscle atrophy 1+ strength Neurologic: Oriented X3, Speech NL, Babinski negative Diffuse weakness left lower extremity IVs and Medications Medications Reviewed: Medications were reviewed in detail Lab and Diagnostics Result Diagram: 12/17/16 0000 12/17/16 0000 X-Rays, CTs and MRIs 12/17/16 MRI MULTIPLE SCLEROSIS BRAIN WITH AND WITHOUT CONTRAST ([id number]) IMPRESSION: 1. There multiple bilateral deep and periventricular white matter lesions similar in extent to the comparison MRI dated 04/05/16. No new white matter lesions visualized 2. No acute intracranial findings. 3. No findings to suggest progression of disease when compared with the study dated 04/05/16. 4. No abnormal enhancement to suggest active demyelination. MRI IMPRESSION: 1. No acute intracranial hemorrhage or ischemia. 2. No parenchymal mass. 3. Extensive white matter changes within the supratentorial brain has a pattern that is most suggestive of demyelinating process such as multiple sclerosis, particularly given the patient's age. Chronic small vessel ischemic changes are felt to be unlikely given the patient's age. There is questionable involvement of the corpus callosum. No definite abnormal signal is appreciated involving the posterior fossa, brainstem, midbrain. No enhancing lesions. Assessment & Plan Patient is a 41 year old female with pmh of MS (last flare end of ), frequent UTIs, Hypothyroidism who is getting admitted for the left sided weakness, on steroids for MS exacerbation and Augmentin for parotid infection > MS Exacerbation with Left sided weakness, poa, active. despite being on glatopa - Started high dose IV steroids 1000mg Qdaily started 12/17. - MRI-multiple bilateral deep and periventricular white matter lesions similar in extent to the comparison MRI dated 04/05/16. No new white matter lesions visualized. . - Will arrange follow up with outpatient Neurologist next week, Dr. Rajeev Bauer. Consider different agent as outpatient such as tecfidera. Keep follow up appointment December 25, 2pm. Office will call with sooner follow up if available. - Neurology, Dr. Sanchez, consulted. Plan discussed as above. LE Cramps- active. likely due to MS. Rule out electrolyte deficiency. May benefit from MM relaxer, Will try Tizanidine. >recent h/o partoditis - markedly improved, no fever or wbc count observed - finish the course of oral abx Augmentin for 10 days to finish Dec.22 > h/o UTIs, stable. - urinalysis ruled out the etiology for flare from UTI >recent h/o Left eye bacterial conjunctivitis - continue polymyxin B to complete the course on 12/20. > Hypothyroidism - continue home levothyroxine > H/o alcohol withdrawals - continue vitamin supplements - No evidence Dispo: Patient likely to stay > 2 days due to MS flare and its complications. Pain Evaluation: Adequate Pain Control VTE Mechanical Devices: Intermittant Pneumatic CD (Pt refuses due to LE muscle cramps) Resuscitation Status: CPR: Attempt Resuscitation Joey Severino MD Dec 20, 2016 10:58
[2016-12-20] MEDS: Amoxicillin-Clav 500-125 mg Tablet PO SCH (12:20)
[2016-12-20 12:26] VITALS: BP 135/81; PULSE 79; RESP 16; O2SAT 97
--- NOTE | 2016-12-20 15:20 | NUR ---
Shift Note: Patient to discharge tomorrow back into the community with follow up care for her MS medications with her outpatient MD. Was complaining of worse leg cramping today. Ibuprofen given, then one dose of Flexeril and subsequent labs drawn to measure electrolytes. Moving well in room with cane. Eye gtts were d/c'd, pt. stating her eye infection feels much improved.
[2016-12-20 15:42] LABS: BASOPHILS % (AUTO) 0.1 % (0-3); EOSINOPHILS % (AUTO) 0 % (0-5); MONOCYTES % (AUTO) 5.2 % (4-12); Mean Corpuscular Hemoglobin 32.6 pg (27.0-35.0); Mean Corpuscular Volume 95.7 fL (81-100); NEUTROPHILS % (AUTO) 84.7 % (40-74); Platelet Count 410 bil/L (150-400)
[2016-12-20 15:57] VITALS: BP 146/86; PULSE 80; RESP 18; O2SAT 97
[2016-12-20 16:33] LABS: Magnesium 1.9 mg/dL (1.6-2.6)
[2016-12-20 22:00] VITALS: BP 125/86; PULSE 89; RESP 16; O2SAT 97
--- NOTE | 2016-12-21 04:44 | NUR ---
Nursing, NOC shift Patient is a/o, voices needs, pleasant and cooperative. SBA mobility, continues w/ LLE weakness; uses cane at baseline. Rx Glatopa injections delivered to floor via pharmacy, wrapped in cool pack. Page to MD to confer; as patient is requesting to take a dose this NOC. Per MD, it will be addressed during the day, as she is currently taking meds (SoluMedrol) that may interact w/ the injection. Three syringes remain wrapped in cool pack, and are in the med room fridge. Pharmacy has the remaining box of medicated syringes downstairs in their department. Patient denies pain/discomfort thru the NOC, appears to be sleeping comfortably. No PRNs requested, VSS. CTM for changes.
[2016-12-21 08:02] VITALS: BP 126/85; PULSE 69; RESP 18; O2SAT 97
[2016-12-21] MEDS ORDERED: Methylpred Sodium Succ Inj 1,000 MG in Dextrose 5% 250 ML IV ONE (08:30)
[2016-12-21] MEDS: Multivit-Miner-Folic Acid-Iron Tablet PO SCH (09:24)
--- NOTE | 2016-12-21 10:28 | PCM.DC.MED ---
Discharge Summary Date of Service Dec 21, 2016 Dates of Hospitalization Date of Hospital Admission Dec 17, 2016 at 03:30 Date of Discharge: Dec 21, 2016 Providers: Admitting Physician: Laury Solano DO Primary Care Physician: Ida JamaRowley,Seamar Attending Physician: Joey Severino MD Procedures XRay, CTs & MRIs 12/17/16 MRI MULTIPLE SCLEROSIS BRAIN WITH AND WITHOUT CONTRAST ([id number]) IMPRESSION: 1. There multiple bilateral deep and periventricular white matter lesions similar in extent to the comparison MRI dated 04/05/16. No new white matter lesions visualized 2. No acute intracranial findings. 3. No findings to suggest progression of disease when compared with the study dated 04/05/16. 4. No abnormal enhancement to suggest active demyelination. MRI IMPRESSION: 1. No acute intracranial hemorrhage or ischemia. 2. No parenchymal mass. 3. Extensive white matter changes within the supratentorial brain has a pattern that is most suggestive of demyelinating process such as multiple sclerosis, particularly given the patient's age. Chronic small vessel ischemic changes are felt to be unlikely given the patient's age. There is questionable involvement of the corpus callosum. No definite abnormal signal is appreciated involving the posterior fossa, brainstem, midbrain. No enhancing lesions. Brief History Patient is a 41 year old female with pmh of MS (last flare end of ), frequent UTIs, Hypothyroidism who is getting admitted for the left sided weakness. She was in here with her friend last night in ER as he was supposed to be admitted for detox, he was given meds and was being discharged when she felt loss of motor response in her left foot. She follows Dr. Rajeev Bauer ( neurologist) in [place] for MS. She added that she recently had right parotid infection for which was taking augmentin, and left eye bacterial conjunctivitis, for which she is taking polymyxin B drops. Today morning, she denies any complaints except not being to move her left foot still. She added that she was started on Glatopa by her neurologist about a month ago, however she has only taken 7 days of meds so far. The reason being, the med needs to be refrigerated and she lives in a car, and her medication is sitting in her friend 's fridge. Hospital Course Patient is a 41 year old female with pmh of MS (last flare end of ), frequent UTIs, Hypothyroidism who is getting admitted for the left sided weakness, on steroids for MS exacerbation and Augmentin for parotid infection > MS Exacerbation with Left sided weakness, poa, active. despite being on glatopa - Started high dose IV steroids 1000mg Qdaily started 12/17. - MRI-multiple bilateral deep and periventricular white matter lesions similar in extent to the comparison MRI dated 04/05/16. No new white matter lesions visualized. . - Will arrange follow up with outpatient Neurologist next week, Dr. Rajeev Bauer. Consider different agent as outpatient such as tecfidera. Keep follow up appointment December 25, 2pm. Office will call with sooner follow up if available. - Neurology, Dr. Sanchez, consulted. Plan discussed as above. LE Cramps- active. likely due to MS. Rule out electrolyte deficiency. May benefit from MM relaxer, Will try Tizanidine. >recent h/o partoditis - markedly improved, no fever or wbc count observed - finish the course of oral abx Augmentin for 10 days to finish Dec.22 > h/o UTIs, stable. - urinalysis ruled out the etiology for flare from UTI >recent h/o Left eye bacterial conjunctivitis - continue polymyxin B to complete the course on 12/20. > Hypothyroidism - continue home levothyroxine > H/o alcohol withdrawals - continue vitamin supplements - No evidence Dispo: Patient likely to stay > 2 days due to MS flare and its complications. Exam Vital Signs (Last) Date Time Temp Pulse Resp B/P Pulse Ox O2 Delivery O2 Flow Rate FiO2 12/21/16 08:02 36.6 69 18 126/85 97 Room Air Test 12/17/16 00:00 12/17/16 09:14 12/20/16 15:30 Hold Purple Top Tube Received (Received) Hold Blue Top Tube Received (Received) Total Bilirubin 0.2mg/dL (0.0-1.2) Aspartate Amino Transf (AST/SGOT) 27U/L (0-50) Alanine Aminotransferase (ALT/SGPT) 15U/L (0-32) Alkaline Phosphatase 43U/L (25-150) Total Protein 7.5g/dL (6.4-8.4) Albumin 4.3g/dL (3.4-5.0) Hold Red Top Tube Received (Received) Hold Nancy Top Tube Received (Received) Urine Color Straw (YELLOW) Urine Appearance Clear (CLEAR,HAZY) Urine pH 5.5 (5.0-8.0) Urine Specific [place] 1.025 (1.003-1.035) Urine Protein Negativemg/dL (NEG,TRACE) Urine Glucose (UA) Negativemg/dL (NEGATIVE) Urine Ketones Tracemg/dL (NEGATIVE) Urine Occult Blood Large (NEGATIVE) Urine Nitrite Negative (NEGATIVE) Urine Bilirubin Negative (NEGATIVE) Urine Urobilinogen Normalmg/dL (NORMAL) Urine Leukocyte Esterase Negative (NEGATIVE) Urine RBC 0-2/hpf (0-2) Urine WBC 0-5/hpf (0-5) Urine Epithelial Cells Occasional/hpf (NONE-MOD) Urine Crystals None seen (NONE SEEN) Urine Bacteria Few/hpf (NONE-FEW) Urine Hyaline Casts None/lpf (NONE) Urine Granular Casts None seen (NONE SEEN) Urine Waxy Casts None seen (NONE SEEN) Urine Red Blood Cell Casts None seen (NONE SEEN) Urine White Blood Cell Casts None seen (NONE SEEN) Urine Mucus Present (None Seen) Urine Trichomonas None seen (NONE SEEN) Urine Yeast None (NONE SEEN) Urinalysis Comment None Urine Culture Reflexed Not indicated Urine HCG, Qualitative Negative (Negative) White Blood Count 15.3th/mm3 (3.8-10.1) Red Blood Count 3.50mil/mm3 (3.90-5.20) Hemoglobin 11.4g/dL (12.0-15.6) Hematocrit 33.5% (35.0-46.0) Mean Corpuscular Volume 95.7fL (81-100) Mean Corpuscular Hemoglobin 32.6pg (27.0-35.0) Mean Corpuscular Hemoglobin Concent 34.0% (32.0-37.0) Red Cell Distribution Width 14.5% (12.3-15.4) Platelet Count 410bil/L (150-400) Neutrophils (%) (Auto) 84.7% (40-74) Lymphocytes (%) (Auto) 9.0% (14-46) Monocytes (%) (Auto) 5.2% (4-12) Eosinophils (%) (Auto) 0% (0-5) Basophils (%) (Auto) 0.1% (0-3) Sodium Level 134mEq/L (134-144) Potassium Level 4.2mEq/L (3.5-5.2) Chloride Level 96mEq/L (97-108) Carbon Dioxide Level 24mmol/L (18-29) Blood Urea Nitrogen 22mg/dL (6-20) Creatinine 0.51mg/dL (0.57-1.00) Estimat Glomerular Filtration Rate 192mL/min (>59) Glucose Level 161mg/dL (60-99) Calcium Level 9.1mg/dL (8.5-10.1) Magnesium Level 1.9mg/dL (1.6-2.6) Total Creatine Kinase 29U/L (21-215) Discharge Medications Discharge Medications ([Melatonin 200mg]) 1,000 MG PO HS (Reported) Amoxicillin/Clav K 500-125 mg (Augmentin 500-125 mg) 1 Each Tablet 1 TABLET PO BID (Reported) Cephalexin (Keflex) 500 Mg Capsule 500 MG PO TID Prescribed by: DECLAN OLIVEIRA Crankodi Conc/Ascorbic Acid (Cranberry 6,000 mg Softgel) 1 Each Capsule 1 EACH PO DAILY (Reported) Levothyroxine (Levothyroxine) 150 Mcg Tablet 150 MCG PO DAILY (Reported) Magnesium Amino Acid Chelate (Magnesium) 100 Mg Tablet 100 MG PO DAILY (Reported ) Potassium Gluconate (Potassium) 99 Mg Tablet 99 MG PO DAILY (Reported) Vit W-Ca,Fe,FA(<1 mg) ( Formula) 1 Each Tablet 1 TAB PO DAILY ( Reported) Pyridoxine HCl (Vitamin B6) (B-6) 200 Mg Tablet.er 200 MG PO DAILY (Reported) Time spent Greater than 30 minutes was spent in preparation of discharge with greater than 50% of that time dedicated to patient counseling and coordination of care. Joey Severino MD Dec 21, 2016 10:28
[2016-12-21] MEDS ORDERED: .Epic Conversion Completed XX PRN (10:30)
[2016-12-21] MEDS ORDERED: MELA1TAB9 PO (11:33)
[2016-12-21] MEDS ORDERED: CYCL10TA9 PO (11:33)
[2016-12-21] MEDS ORDERED: IBUP-1827 PO (11:33)
--- NOTE | 2016-12-21 11:35 | PCM.PNMED ---
Subjective Date of Service Dec 21, 2016 Subjective Pt to get last dose of IV Steroids today. Still c/o of severe LE Muscle cramps. Exam Vital Signs Vital Sign - Last Date Time Temp Pulse Resp B/P Pulse Ox O2 Delivery O2 Flow Rate FiO2 12/21/16 08:02 36.6 69 18 126/85 97 Room Air Intake and Output 12/20/16 12/20/16 12/21/16 Cumulative From/Thru 15:00 23:00 07:00 12/16/16 20:34 - 12/20/16 17:13 Intake Total 700 ml 500 ml 7696 ml Output Total 700 ml 750 ml 6125 ml Balance 0 ml -250 ml 1571 ml Intake Oral 700 ml 500 ml 7170 ml IV Total 516 ml Tube Irrigant 10 ml Output Urine Total 700 ml 750 ml 6125 ml # Voids 5 # Bowel Movements 1 1 Exam General/Constitutional: Well-developed, Well-nourished Head / Eyes: Atraumatic, Normocephalic ENT: Mucous membranes moist, Conjunctiva normal Neck: Supple, Full range of motion Respiratory: Breath sounds normal, Clear to auscultation, No respiratory distress Cardiovascular: Regular rate & rhythm, Heart sounds normal Abdomen / GI: Soft, Non-tender Back: No CVA tenderness Skin: Warm, Dry Neurologic: Alert, Oriented Psychiatric: Mood/affect normal, Behavior normal Neurologic: Oriented X3, Speech NL, Babinski negative, LLE- weakness 3/5 strength. IVs and Medications Medications Reviewed: Medications were reviewed in detail Lab and Diagnostics Result Diagram: 12/20/16 1530 12/20/16 1530 X-Rays, CTs and MRIs 12/17/16 MRI MULTIPLE SCLEROSIS BRAIN WITH AND WITHOUT CONTRAST ([id number]) IMPRESSION: 1. There multiple bilateral deep and periventricular white matter lesions similar in extent to the comparison MRI dated 04/05/16. No new white matter lesions visualized 2. No acute intracranial findings. 3. No findings to suggest progression of disease when compared with the study dated 04/05/16. 4. No abnormal enhancement to suggest active demyelination. MRI IMPRESSION: 1. No acute intracranial hemorrhage or ischemia. 2. No parenchymal mass. 3. Extensive white matter changes within the supratentorial brain has a pattern that is most suggestive of demyelinating process such as multiple sclerosis, particularly given the patient's age. Chronic small vessel ischemic changes are felt to be unlikely given the patient's age. There is questionable involvement of the corpus callosum. No definite abnormal signal is appreciated involving the posterior fossa, brainstem, midbrain. No enhancing lesions. Assessment & Plan Patient is a 41 year old female with pmh of MS (last flare end of ), frequent UTIs, Hypothyroidism who is getting admitted for the left sided weakness, on steroids for MS exacerbation and Augmentin for parotid infection > MS Exacerbation with Left sided weakness, poa, active. despite being on glatopa - Started high dose IV steroids 1000mg Qdaily started 12/17. - MRI-multiple bilateral deep and periventricular white matter lesions similar in extent to the comparison MRI dated 04/05/16. No new white matter lesions visualized. . - Will arrange follow up with outpatient Neurologist next week, Dr. Rajeev Bauer. Consider different agent as outpatient such as tecfidera. -Keep follow up appointment December 25, 2pm. Office will call with sooner follow up if available. LE Cramps- active. likely due to MS. Rule out electrolyte deficiency. New medication Flexeril 10mg three times a day as needed >recent h/o partoditis - markedly improved, no fever or wbc count observed - Continue course of oral abx Augmentin for 10 days to finish Dec.22 >recent h/o Left eye bacterial conjunctivitis - continue polymyxin B to completed the course on 12/20. > Hypothyroidism - continue home levothyroxine > H/o alcohol withdrawals - continue vitamin supplements - No evidence of WD. Dispo: Plan for discharge once complete 5th dose of IV Steroids. Severe muscle cramps this AM, will give Flexeril dose to see if helps. Pt fears she can not safely drive car with the cramps. Will try to arrange pickup or location for drop off. - New medication Flexeril 10mg three times a day as needed -Keep follow up appointment with your Neurologist, , on December 25, 2pm. Their office will call with sooner follow up if available. Pain Evaluation: Pain not Controlled VTE Mechanical Devices: Intermittant Pneumatic CD Resuscitation Status: CPR: Attempt Resuscitation Joey Severino MD Dec 21, 2016 11:35
--- NOTE | 2016-12-21 14:52 | PCM.DC.MED ---
Discharge Summary Date of Service Dec 21, 2016 Dates of Hospitalization Date of Hospital Admission Dec 17, 2016 at 03:30 Date of Discharge: Dec 21, 2016 Providers: Admitting Physician: Laury Solano DO [facility] Attending Physician: Keaton Carreon MD Diagnosis at Time of Discharge Diagnosis at Time of Discharge MS Exacerbation with Left sided weakness, poa, active. Muscle Spams of Lower Extremities Recent h/o partoditis Recent h/o Left eye bacterial conjunctivitis Hypothyroidism Procedures XRay, CTs & MRIs 12/17/16 MRI MULTIPLE SCLEROSIS BRAIN WITH AND WITHOUT CONTRAST ([id number]) IMPRESSION: 1. There multiple bilateral deep and periventricular white matter lesions similar in extent to the comparison MRI dated 04/05/16. No new white matter lesions visualized 2. No acute intracranial findings. 3. No findings to suggest progression of disease when compared with the study dated 04/05/16. 4. No abnormal enhancement to suggest active demyelination. MRI IMPRESSION: 1. No acute intracranial hemorrhage or ischemia. 2. No parenchymal mass. 3. Extensive white matter changes within the supratentorial brain has a pattern that is most suggestive of demyelinating process such as multiple sclerosis, particularly given the patient's age. Chronic small vessel ischemic changes are felt to be unlikely given the patient's age. There is questionable involvement of the corpus callosum. No definite abnormal signal is appreciated involving the posterior fossa, brainstem, midbrain. No enhancing lesions. Brief History Per HPI on 12/17/[address] Tolentino Patient is a 41 year old female with pmh of MS (last flare end of ), frequent UTIs, Hypothyroidism who is getting admitted for the left sided weakness. She was in here with her friend last night in ER as he was supposed to be admitted for detox, he was given meds and was being discharged when she felt loss of motor response in her left foot. She follows Dr. Rajeev Bauer ( neurologist) in [place] for MS. She added that she recently had right parotid infection for which was taking augmentin, and left eye bacterial conjunctivitis, for which she is taking polymyxin B drops. Today morning, she denies any complaints except not being to move her left foot still. She added that she was started on Glatopa by her neurologist about a month ago, however she has only taken 7 days of meds so far. The reason being, the med needs to be refrigerated and she lives in a car, and her medication is sitting in her friend 's fridge. Hospital Course Patient is a 41 year old female with pmh of MS (last flare end of ), frequent UTIs, Hypothyroidism who is getting admitted for the left sided weakness, on steroids for MS exacerbation and Augmentin for parotid infection > MS Exacerbation with Left sided weakness, poa, active. despite being on glatopa - Started high dose IV steroids 1000mg Qdaily started 12/17. - MRI-multiple bilateral deep and periventricular white matter lesions similar in extent to the comparison MRI dated 04/05/16. No new white matter lesions visualized. . - Will arrange follow up with outpatient Neurologist next week, Dr. Rajeev Bauer. Consider different agent as outpatient such as tecfidera. -Keep follow up appointment December 25, 2pm. Office will call with sooner follow up if available. LE Cramps- active. likely due to MS. Rule out electrolyte deficiency. New medication Flexeril 10mg three times a day as needed >recent h/o partoditis - markedly improved, no fever or wbc count observed - Continue course of oral abx Augmentin for 10 days to finish Dec.22 >recent h/o Left eye bacterial conjunctivitis - continue polymyxin B to completed the course on 12/20. > Hypothyroidism - continue home levothyroxine > H/o alcohol withdrawals - continue vitamin supplements - No evidence of WD. Dispo: Plan for discharge once complete 5th dose of IV Steroids. Severe muscle cramps this AM, will give Flexeril dose to see if helps. Pt fears she can not safely drive car with the cramps. Will try to arrange pickup or location for drop off. - New medication Flexeril 10mg three times a day as needed -Keep follow up appointment with your Neurologist, , on December 25, 2pm. Their office will call with sooner follow up if available. Exam Vital Signs (Last) Date Time Temp Pulse Resp B/P Pulse Ox O2 Delivery O2 Flow Rate FiO2 12/21/16 08:02 36.6 69 18 126/85 97 Room Air Test 12/17/16 00:00 12/17/16 09:14 12/20/16 15:30 Hold Purple Top Tube Received (Received) Hold Blue Top Tube Received (Received) Total Bilirubin 0.2mg/dL (0.0-1.2) Aspartate Amino Transf (AST/SGOT) 27U/L (0-50) Alanine Aminotransferase (ALT/SGPT) 15U/L (0-32) Alkaline Phosphatase 43U/L (25-150) Total Protein 7.5g/dL (6.4-8.4) Albumin 4.3g/dL (3.4-5.0) Hold Red Top Tube Received (Received) Hold [place] Top Tube Received (Received) Urine Color Straw (YELLOW) Urine Appearance Clear (CLEAR,HAZY) Urine pH 5.5 (5.0-8.0) Urine Specific [place] 1.025 (1.003-1.035) Urine Protein Negativemg/dL (NEG,TRACE) Urine Glucose (UA) Negativemg/dL (NEGATIVE) Urine Ketones Tracemg/dL (NEGATIVE) Urine Occult Blood Large (NEGATIVE) Urine Nitrite Negative (NEGATIVE) Urine Bilirubin Negative (NEGATIVE) Urine Urobilinogen Normalmg/dL (NORMAL) Urine Leukocyte Esterase Negative (NEGATIVE) Urine RBC 0-2/hpf (0-2) Urine WBC 0-5/hpf (0-5) Urine Epithelial Cells Occasional/hpf (NONE-MOD) Urine Crystals None seen (NONE SEEN) Urine Bacteria Few/hpf (NONE-FEW) Urine Hyaline Casts None/lpf (NONE) Urine Granular Casts None seen (NONE SEEN) Urine Waxy Casts None seen (NONE SEEN) Urine Red Blood Cell Casts None seen (NONE SEEN) Urine White Blood Cell Casts None seen (NONE SEEN) Urine Mucus Present (None Seen) Urine Trichomonas None seen (NONE SEEN) Urine Yeast None (NONE SEEN) Urinalysis Comment None Urine Culture Reflexed Not indicated Urine HCG, Qualitative Negative (Negative) White Blood Count 15.3th/mm3 (3.8-10.1) Red Blood Count 3.50mil/mm3 (3.90-5.20) Hemoglobin 11.4g/dL (12.0-15.6) Hematocrit 33.5% (35.0-46.0) Mean Corpuscular Volume 95.7fL (81-100) Mean Corpuscular Hemoglobin 32.6pg (27.0-35.0) Mean Corpuscular Hemoglobin Concent 34.0% (32.0-37.0) Red Cell Distribution Width 14.5% (12.3-15.4) Platelet Count 410bil/L (150-400) Neutrophils (%) (Auto) 84.7% (40-74) Lymphocytes (%) (Auto) 9.0% (14-46) Monocytes (%) (Auto) 5.2% (4-12) Eosinophils (%) (Auto) 0% (0-5) Basophils (%) (Auto) 0.1% (0-3) Sodium Level 134mEq/L (134-144) Potassium Level 4.2mEq/L (3.5-5.2) Chloride Level 96mEq/L (97-108) Carbon Dioxide Level 24mmol/L (18-29) Blood Urea Nitrogen 22mg/dL (6-20) Creatinine 0.51mg/dL (0.57-1.00) Estimat Glomerular Filtration Rate 192mL/min (>59) Glucose Level 161mg/dL (60-99) Calcium Level 9.1mg/dL (8.5-10.1) Magnesium Level 1.9mg/dL (1.6-2.6) Total Creatine Kinase 29U/L (21-215) Discharge Medications Discharge Medications ([Melatonin 200mg]) 1,000 MG PO HS (Reported) Amoxicillin/Clav K 500-125 mg (Augmentin 500-125 mg) 1 Each Tablet 1 TABLET PO BID (Reported) Cephalexin (Keflex) 500 Mg Capsule 500 MG PO TID Prescribed by: DECLAN OLIVEIRA Cranberry Conc/Ascorbic Acid (Cranberry 6,000 mg Softgel) 1 Each Capsule 1 EACH PO DAILY (Reported) Levothyroxine (Levothyroxine) 150 Mcg Tablet 150 MCG PO DAILY (Reported) Magnesium Amino Acid Chelate (Magnesium) 100 Mg Tablet 100 MG PO DAILY (Reported ) Melatonin (Melatonin) 1 Mg Tablet 1 MG PO HS Prescribed by: KEATON CARREON MD Potassium Gluconate (Potassium) 99 Mg Tablet 99 MG PO DAILY (Reported) Vit W-Ca,Fe,FA(<1 mg) ( Formula) 1 Each Tablet 1 TAB PO DAILY ( Reported) Pyridoxine HCl (Vitamin B6) (B-6) 200 Mg Tablet.er 200 MG PO DAILY (Reported) As needed Cyclobenzaprine (Cyclobenzaprine) 10 Mg Tablet 10 MG PO TID PRN PRN For Spasm Prescribed by: KEATON CARREON MD Ibuprofen (Ibuprofen) 600 Mg Tablet 600 MG PO TID PRN PRN For Pain Prescribed by: KEATON CARREON MD Additional med instructions - New medication Flexeril 10mg three times a day as needed Followup Plan Disposition: To Community Follow-up plan -Keep follow up appointment with your Neurologist, , on December 25, 2pm. Their office will call with sooner follow up if available. Discharge Diet: No restrictions Discharge Activity: No restrictions (Use Cane and Walker to assist until strength return in Left lower leg) Time spent Greater than 30 minutes was spent in preparation of discharge with greater than 50% of that time dedicated to patient counseling and coordination of care. Keaton Carreon MD Dec 21, 2016 14:52
--- NOTE | 2016-12-21 15:15 | PCM.DIMED ---
Discharge Instructions Date of Service Dec 21, 2016 Dates of Hospitalization Dec 17, 2016 at 03:30 Discharge Diagnosis Discharge Diagnosis MS Exacerbation with Left sided weakness, poa, active. Muscle Spams of Lower Extremities Recent h/o partoditis Recent h/o Left eye bacterial conjunctivitis Hypothyroidism Medication Instructions Additional med instructions - New medication Flexeril 10mg three times a day as needed Test Results Test Results [facility] Diagnostic Imaging [place] [address] Patient Name: BALJIT SIMON MR#: [id number] Location: [facility] [place] Ordering Phys: Jonas Tolentino MD Date of Service: 12/17/16 1204 PROCEDURE: MRI MULTIPLE SCLEROSIS BRAIN WITH AND WITHOUT CONTRAST ([id number]) INDICATIONS: MULTIPLE SCLEROSIS TECHNIQUE: Noncontrast sagittal and axial FLAIR, axial and coronal T2 fast spin echo, axial VIBE, axial gradient echo, axial diffusion and ADC through the brain. After the administration of contrast, axial and coronal VIBE with fat saturation through the brain. COMPARISON: [facility], MR, MR BRAIN W&WO CON, 04/05/2016, 18:54. FINDINGS: Image quality: Excellent. CSF spaces: Ventricles are normal in size and shape. Basal cisterns are patent. No extra-axial fluid collections. Brain: No intracranial bleeds or mass effects. Bernardo-white matter interface appears intact. There multiple bilateral deep and periventricular white matter lesions similar in extent to the comparison MRI dated 04/05/16. No new white matter lesions visualized. No abnormal intracranial enhancement. Diffusion weighted images show no acute ischemic insults. Brainstem appears normal. Normal intravascular flow voids are present. Skull and face: Calvarial marrow signal is normal. Orbits appear normal. Sinuses: Sinuses and mastoids are clear. IMPRESSION: 1. Unchanged deep and periventricular white matter lesions likely associated with multiple sclerosis. 2. No acute intracranial findings. 3. No findings to suggest progression of disease when compared with the study dated 04/05/16. 4. No abnormal enhancement to suggest active demyelination. Diet Discharge Diet: No restrictions Activity Discharge Activity: No restrictions (Use Cane and Walker to assist until strength return in Left lower leg) Patient Instructions Patient Instructions Continue with your regular MS medications until your follow up with your neurologist. Follow-up plan -Keep follow up appointment with your Neurologist, Dr.[place] on December 25, 2pm. Their office will call with sooner follow up if available. Joey Severino MD Dec 21, 2016 15:15
--- NOTE | 2016-12-21 18:01 | NUR ---
READY FOR DISCHARGE PATIENT IS READY FOR DISCHARGE, AWAITING FOR A FRIEND TO TAKE HER. PRESCRIPTIONS FAXED TO [facility] PER PATIENT REQUEST. BELONGINGS PACKED, DISCHARGE NOTES, INSTRUCTIONS GIVEN AND WELL UNDERSTOOD BY PATIENT. Addendum: 12/21/16 at 1909 by CASTILLO MANSFIELD RN PATIENT LEFT AT 19:08 WITH FRIEND.
--- NOTE | 2016-12-21 18:05 | NUR ---
Social Work Note: Discharge Data& Assessment: Per MD in multidisciplinary rounds, pt is medically ready to discharge. Shanae Mitchell is a 41 year old female admitted on 12/17/2016 for acute exacerbation of MS. Per MD pt is medically improved and ready to discharge and has an appointment with the neurologist on Friday12/24/2016 for possibly being prescribed a medication that does not require refrigeration. Resources have been provided. No other MD orders or pt needs identified. Plan: Per pt is medically ready to discharge back into the community with her Significant other to her car. No other MD orders or pt needs identified. JEFF Thapa
== END 2016-12-21 19:05 | disposition home or self-care (01) ==
LOC: SED 20:05 → INTOOBSV 12-17 03:30 → MOC 12-17 03:30
PROVIDERS: ADMIT Internal Medicine; ATTEND Internal Medicine
DX: G35 Multiple sclerosis (principal); K11.20 Sialoadenitis, unspecified; H10.89 Other conjunctivitis; B99.9 Unspecified infectious disease; M62.838 Other muscle spasm; Z59.0 Homelessness; E11.9 Type 2 diabetes mellitus without complications; E03.9 Hypothyroidism, unspecified; Z88.1 Allergy status to other antibiotic agents; Z87.440 Personal history of urinary (tract) infections
CPT/HCPCS: 36415; 70553; 80048; 80053; 81000; 81025; 82550; 83735; 85025; 96365; 96366; 99284; A9585; J2930